=== PATIENT | female | born 1935 | race Caucasian/White ===

== ENCOUNTER 2022-05-01 16:44 | Emergency (ER) | payer MEDICARE, OTHER ==
[~2022-05-01] VITALS: Ht 167.6 cm; Wt 65.8 kg
[2022-05-01 17:16] LABS: BASOPHILS # (AUTO) 0.1 (0.0-0.1); BASOPHILS % 0.6 % (0.0-1.0); EOSINOPHILS % 0.3 % (0.0-6.0); HEMATOCRIT 38.2 % (34.2-44.1); HEMOGLOBIN 12.6 g/dL (12.0-16.0); LYMPHOCYTES # (AUTO) 2.8 (1.0-3.2); LYMPHOCYTES % 31.9 % (18.0-39.1); MEAN CORPUSCULAR HEMOGLOBIN 30.8 pg (28-32); MEAN CORPUSCULAR VOLUME 93.4 fL (81-99); MONOCYTES # (AUTO) 0.9 (0.2-0.8); MONOCYTES % 10.4 % (4.4-11.3); NEUTROPHILS % 56.6 % (38.7-80.0); PLATELET COUNT 258 x10e3/uL (140-360); RED BLOOD COUNT 4.09 x10e6/uL (3.6-5.1); RED CELL DISTRIBUTION WIDTH 13.2 % (11.7-14.4)
[2022-05-01 17:32] LABS: ANION GAP 13.8 mmol/L (8-16); CALCIUM 9.9 mg/dL (8.4-10.2); CREATININE, SERUM 0.77 mg/dL (0.57-1.11)
[2022-05-01 17:38] LABS: POTASSIUM 2.8 mmol/L (3.5-5.1)
[2022-05-01] MEDS ORDERED: POTASSIUM CHLORIDE 20 MEQ TAB CR PO STA (18:03)
[2022-05-01 20:23] VITALS: BP 162/78
== END 2022-05-01 20:20 | disposition home or self-care (01) ==
LOC: ER 16:49
DX: S00.83XA Contusion of other part of head, initial encounter (principal); R51.9 Headache, unspecified; W01.198A Fall on same level from slipping, tripping and stumbling with subsequent striking against other object, initial encounter; Y92.89 Other specified places as the place of occurrence of the external cause; I10 Essential (primary) hypertension; E03.9 Hypothyroidism, unspecified; E87.6 Hypokalemia
CPT/HCPCS: 36415; 70450; 72125; 80048; 80329; 85025; 93005; 99284